=== PATIENT | female | born 1985 | race Hispanic/Latino ===

== ENCOUNTER 2017-03-28 11:38 | Emergency (ER) | payer SELFPAY ==
--- NOTE | 2017-03-28 11:43 | Emergency Department Report ---
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 No severe headache, neck pain, chest pain, abdominal pain or shortness of breath. Patient reports an unintentional weight loss of 7 pounds in the past month, she did not eat this morning, ate last night. Patient reports that she is not bulimic or anorexic. She also reports that she is not homicidal or suicidal. Patient was given IV fluid in the ER, and her symptoms dramatically improved. No pulmonary embolus or DVT risk factors, no family history of DVT or pulmonary embolus. Timing/Prior Episodes: single episode today Precipitating Factors: Positive: blurred vision, diaphoresis, lightheadedness Context: standing Loss of Consciousness: brief (seconds) Current Symptoms: back to normal, diaphoresis, dizziness, lightheadedness, weakness. denies: blurred vision, chest pain, loss of bladder control, loss of bowel control - Related Data Allergies/Adverse Reactions: Allergies escitalopram [From Lexapro] Allergy (Verified 03/28/17 12:22) Swelling Penicillins Allergy (Verified 03/28/17 12:22) Rash ED Review of Systems ROS: Stated complaint: SYNCOPE Other details as noted in HPI Constitutional: diaphoresis, malaise. denies: fever Eyes: denies: vision change ENT: denies: epistaxis Cardiovascular: syncope. denies: chest pain Gastrointestinal: denies: vomiting Genitourinary: as per HPI Musculoskeletal: as per HPI Skin: as per HPI Neurological: as per HPI, weakness Psychiatric: denies: homicidal thoughts, suicidal thoughts ED Physical Exam - General General appearance: alert, in no apparent distress - Head Head exam: Present: atraumatic, normocephalic - Eye Eye exam: Present: normal appearance, EOMI, other (visual acuity intact to finger counting, color perception, reading at a close distance). Absent: nystagmus - ENT ENT exam: Present: normal exam, normal orophraynx, mucous membranes moist, normal external ear exam - Neck Neck exam: Present: normal inspection, full ROM. Absent: tenderness, meningismus - Respiratory Respiratory exam: Present: normal lung sounds bilaterally. Absent: respiratory distress, wheezes, rales, rhonchi, stridor, chest wall tenderness, accessory muscle use, decreased breath sounds, prolonged expiratory - Cardiovascular Cardiovascular Exam: Present: regular rate, normal rhythm, normal heart sounds. Absent: bradycardia, tachycardia, irregular rhythm, systolic murmur, diastolic murmur, rubs, gallop - GI/Abdominal GI/Abdominal exam: Present: soft, normal bowel sounds. Absent: distended, tenderness, guarding, rebound, rigid, pulsatile mass - Extremities Exam Extremities exam: Present: normal inspection, full ROM, normal capillary refill. Absent: pedal edema, joint swelling, calf tenderness - Back Exam Back exam: Present: normal inspection, full ROM. Absent: tenderness, CVA tenderness (R), CVA tenderness (L), muscle spasm, paraspinal tenderness, vertebral tenderness - Neurological Exam Neurological exam: Present: alert, oriented X3, normal gait (there is no past- pointing. Normal [id number], negative pronator drift, negative Romberg examination), other (Extraocular movements intact. Tongue midline. No facial droop. Facial sensation intact to light touch in the V1, V2, V3 distribution bilaterally. 5 and 5 strength in 4 extremities.. Sensation is intact to light touch in 4 extremities.). Absent: motor sensory deficit - Psychiatric Psychiatric exam: Present: normal affect, normal mood - Skin Skin exam: Present: warm, dry, intact, normal color. Absent: rash ED Course Vital Signs 03/28/17 03/28/17 12:14 12:40 Temperature 98.3 F Pulse Rate 78 Respiratory 16 16 Rate Blood Pressure 116/75 O2 Sat by Pulse 99 99 Oximetry - Reevaluation(s) Reevaluation #1: 03/28/17 14:44 There is no headache, neck pain, chest pain, abdominal pain or shortness of breath. GCS of 15, NIH score of 0. ED Medical Decision Making - Lab Data Result diagrams: 03/28/17 12:00 03/28/17 12:00 Vital Signs 03/28/17 03/28/17 12:14 12:40 Temperature 98.3 F Pulse Rate 78 Respiratory 16 16 Rate Blood Pressure 116/75 O2 Sat by Pulse 99 99 Oximetry Lab Results 03/28/17 03/28/17 03/28/17 Range/Units 12:00 12:00 12:00 WBC 6.9 (4.5-11.0) K/mm3 RBC 4.53 (3.65-5.03) M/mm3 Hgb 14.2 (10.1-14.3) gm/dl Hct 40.9 (30.3-42.9) % MCV 90 (79-97) fl MCH 31 (28-32) pg MCHC 35 H (30-34) % RDW 12.7 L (13.2-15.2) % Plt Count 106 L (140-440) K/mm3 Lymph % (Auto) 23.6 (13.4-35.0) % Arthur % (Auto) 5.9 (0.0-7.3) % Eos % (Auto) 1.1 (0.0-4.3) % Baso % (Auto) 0.8 (0.0-1.8) % Lymph # 1.6 (1.2-5.4) K/mm3 Arthur # 0.4 (0.0-0.8) K/mm3 Eos # 0.1 (0.0-0.4) K/mm3 Baso # 0.1 (0.0-0.1) K/mm3 Seg Neutrophils % 68.6 (40.0-70.0) % Seg Neutrophils # 4.7 (1.8-7.7) K/mm3 PT 14.2 (12.2-14.9) Sec. INR 1.05 (0.87-1.13) Sodium 140 (137-145) mmol/L Potassium 4.2 (3.6-5.0) mmol/L Chloride 103.4 (98-107) mmol/L Carbon Dioxide 23 (22-30) mmol/L Anion Gap 18 mmol/L BUN 8 (7-17) mg/dL Creatinine 0.6 L (0.7-1.2) mg/dL Estimated GFR > 60 ml/min BUN/Creatinine Ratio 13 % Glucose 86 (65-100) mg/dL Calcium 9.1 (8.4-10.2) mg/dL Magnesium (1.7-2.3) mg/dL TSH (0.270-4.200) mlU/mL Free T4 (0.76-1.46) ng/dL HCG, Qual (Negative) 03/28/17 03/28/17 03/28/17 Range/Units 12:00 12:00 12:00 WBC (4.5-11.0) K/mm3 RBC (3.65-5.03) M/mm3 Hgb (10.1-14.3) gm/dl Hct (30.3-42.9) % MCV (79-97) fl MCH (28-32) pg MCHC (30-34) % RDW (13.2-15.2) % Plt Count (140-440) K/mm3 Lymph % (Auto) (13.4-35.0) % Arthur % (Auto) (0.0-7.3) % Eos % (Auto) (0.0-4.3) % Baso % (Auto) (0.0-1.8) % Lymph # (1.2-5.4) K/mm3 Arthur # (0.0-0.8) K/mm3 Eos # (0.0-0.4) K/mm3 Baso # (0.0-0.1) K/mm3 Seg Neutrophils % (40.0-70.0) % Seg Neutrophils # (1.8-7.7) K/mm3 PT (12.2-14.9) Sec. INR (0.87-1.13) Sodium (137-145) mmol/L Potassium (3.6-5.0) mmol/L Chloride (98-107) mmol/L Carbon Dioxide (22-30) mmol/L Anion Gap mmol/L BUN (7-17) mg/dL Creatinine (0.7-1.2) mg/dL Estimated GFR ml/min BUN/Creatinine Ratio % Glucose (65-100) mg/dL Calcium (8.4-10.2) mg/dL Magnesium 1.80 (1.7-2.3) mg/dL TSH 2.340 (0.270-4.200) mlU/mL Free T4 1.16 (0.76-1.46) ng/dL HCG, Qual (Negative) 03/28/17 Range/Units 12:00 WBC (4.5-11.0) K/mm3 RBC (3.65-5.03) M/mm3 Hgb (10.1-14.3) gm/dl Hct (30.3-42.9) % MCV (79-97) fl MCH (28-32) pg MCHC (30-34) % RDW (13.2-15.2) % Plt Count (140-440) K/mm3 Lymph % (Auto) (13.4-35.0) % Arthur % (Auto) (0.0-7.3) % Eos % (Auto) (0.0-4.3) % Baso % (Auto) (0.0-1.8) % Lymph # (1.2-5.4) K/mm3 Arthur # (0.0-0.8) K/mm3 Eos # (0.0-0.4) K/mm3 Baso # (0.0-0.1) K/mm3 Seg Neutrophils % (40.0-70.0) % Seg Neutrophils # (1.8-7.7) K/mm3 PT (12.2-14.9) Sec. INR (0.87-1.13) Sodium (137-145) mmol/L Potassium (3.6-5.0) mmol/L Chloride (98-107) mmol/L Carbon Dioxide (22-30) mmol/L Anion Gap mmol/L BUN (7-17) mg/dL Creatinine (0.7-1.2) mg/dL Estimated GFR ml/min BUN/Creatinine Ratio % Glucose (65-100) mg/dL Calcium (8.4-10.2) mg/dL Magnesium (1.7-2.3) mg/dL TSH (0.270-4.200) mlU/mL Free T4 (0.76-1.46) ng/dL HCG, Qual Negative (Negative) Vital Signs 03/28/17 03/28/17 12:14 12:40 Temperature 98.3 F Pulse Rate 78 Respiratory 16 16 Rate Blood Pressure 116/75 O2 Sat by Pulse 99 99 Oximetry - EKG Data -: EKG Interpreted by Mn EKG shows normal: sinus rhythm - EKG Data When compared to previous EKG there are: previous EKG unavailable 03/28/17 14:38 Normal sinus, 70 beats per minute, normal intervals, normal axis, not morphologically consistent with STEMI, there is no prior for comparison - Medical Decision Making Differential diagnosis: Orthostasis, vagal event, transient hypoglycemia Assessment and plan: 31-year-old female, history of SVT, PTSD, anxiety, with episode of near syncope/syncope in the emergency department 1. No pulmonary embolus or DVT risk factors, low risk by well's criteria, low risk by JEN score , low risk for heart score,perc negative The patient endorses that she is only eating once a day, twice at the most, and is experiencing an unintentional weight loss of 7 pounds within the past month. She further reports that she is not homicidal or suicidal, and that she is not anorexic or bulimic. Vital signs were consistent with orthostasis, patient observed in the ER for a few hours on telemetry monitoring without any adverse events. Patient is medically suitable to be discharged at this time, the patient is encouraged to eat at least 3-4 meals per day, and she is also encouraged to not drive a car or operate motor vehicles unless cleared by either primary care or cardiology. She will be discharged at this time, return precautions are reviewed. Critical care attestation.: If time is entered above; I have spent that time in minutes in the direct care of this critically ill patient, excluding procedure time. ED Disposition Clinical Impression: Syncope Disposition: DC-01 TO HOME OR SELFCARE Is pt being admited?: No Does the pt Need Aspirin: No Condition: Stable Instructions: Syncope (ED) Additional Instructions: Make certain to eat 3-4 meals per day. Drink 6-8 cups of water per day. Follow -up with her primary care doctor or refrigeration service inspector within the next 7-10 days[address] a car or operate motor vehicles unless cleared by either primary care or cardiology. Return to the ER right away with fevers, chills, chest pain, shortness of breath, intractable nausea or vomiting, confusion, chest pain, recurrent loss of consciousness, inability to tolerate liquid feeds. Referrals: PRIMARY CARE, [Primary Care Provider] - 3-5 Days [facility] [Provider Group] - 3-5 Days [facility] [Provider Group] - 3-5 Days
[2017-03-28 12:22] VITALS: BP 116/75
[2017-03-28 12:25] LABS: Basophils % (Auto) 0.8 % (0.0-1.8); Eosinophils % (Auto) 1.1 % (0.0-4.3); Hematocrit 40.9 % (30.3-42.9); Hemoglobin 14.2 gm/dl (10.1-14.3); Mean Corpuscular HGB Conc 35 % (30-34); Mean Corpuscular Hemoglobin 31 pg (28-32); Mean Corpuscular Volume 90 fl (79-97); Platelet Count 106 K/mm3 (140-440); Red Blood Count 4.53 M/mm3 (3.65-5.03); Red Cell Distribution Width 12.7 % (13.2-15.2); White Blood Count 6.9 K/mm3 (4.5-11.0)
[2017-03-28] MEDS ORDERED: NACL 0.9% 1000 ML 1,000 ML ONE (12:37)
[2017-03-28] MEDS ORDERED: NACL 0.9% 1000 ML 1,000 ML IV ONE (12:39)
[2017-03-28 12:40] LABS: INR 1.05 (0.87-1.13)
[2017-03-28] MEDS ORDERED: NACL 0.9% 1000 ML 2,000 ML IV ONE (12:40)
[2017-03-28 12:45] LABS: Anion Gap 18 mmol/L; BUN/Creatinine Ratio 13; Blood Urea Nitrogen 8 mg/dL (7-17); Calcium 9.1 mg/dL (8.4-10.2); Carbon Dioxide 23 mmol/L (22-30); Chloride 103.4 mmol/L (98-107); Glucose 86 mg/dL (65-100); Potassium 4.2 mmol/L (3.6-5.0); Sodium 140 mmol/L (137-145)
== END 2017-03-28 14:57 | disposition home or self-care (01) ==
LOC: ED 11:38
DX: R55 Syncope and collapse (principal); Z88.0 Allergy status to penicillin; Z88.8 Allergy status to other drugs, medicaments and biological substances
CPT/HCPCS: 36415; 80048; 83735; 84439; 84443; 84703; 85025; 85610; 93005; 93010; 96360; 99284; J7030